=== PATIENT | male | born 1975 | race Caucasian/White ===

== ENCOUNTER → 2019-07-19 | Outpatient (CLI) | payer OTHER ==
[2019-07-19 10:42] LABS: BLOOD UREA NITROGEN 13 mg/dL (7-20)
== END ==
LOC: LAB 09:15
PROVIDERS: ATTEND Pain Medicine Interventional Pain Medicine
DX: Z79.1 Long term (current) use of non-steroidal anti-inflammatories (NSAID) (principal)
CPT/HCPCS: 36415; 82565; 84520